=== PATIENT | female | born 1955 | race Caucasian/White ===

== ENCOUNTER 2021-06-06 11:00 | Emergency (ER) | payer BC ==
[~2021-06-06] VITALS: Ht 172.7 cm; Wt 83.9 kg
[2021-06-06 11:02] VITALS: BP 188/67
[2021-06-06] MEDS ORDERED: DESYREL150 MG PO (11:10)
[2021-06-06] MEDS ORDERED: NORVASC10 MG PO (11:10)
[2021-06-06] MEDS ORDERED: METFORMIN HCL500 M3 PO (11:10)
== END 2021-06-06 11:55 | disposition home or self-care (01) ==
LOC: ER 11:00
DX: S61.211A Laceration without foreign body of left index finger without damage to nail, initial encounter (principal); I10 Essential (primary) hypertension; E11.9 Type 2 diabetes mellitus without complications; Z79.84 Long term (current) use of oral hypoglycemic drugs; Z79.899 Other long term (current) drug therapy; Z88.8 Allergy status to other drugs, medicaments and biological substances; W29.3XXA Contact with powered garden and outdoor hand tools and machinery, initial encounter; Y93.89 Activity, other specified; Y92.89 Other specified places as the place of occurrence of the external cause; Y99.8 Other external cause status